=== PATIENT | male | born 1965 | race Caucasian/White ===

== ENCOUNTER 2016-07-17 11:46 | Emergency (ER) | payer BC ==
[2016-07-17] MEDS ORDERED: Alum Hydrox/Mag Hydrox/Simeth 30 ML, Lidocaine 2% 15 ML PO STA ×2 (12:43)
--- NOTE | 2016-07-17 13:36 | EDM.PDOC ---
ED HISTORY OF PRESENT ILLNESS - General Chief Complaint: Respiratory Problem Stated Complaint: CHEST PAIN/SOB Time Seen by Provider: 07/17/16 12:04 Source of Information: Reports: Patient, RN notes reviewed History Limitations: Reports: No limitations - History of Present Illness INITIAL COMMENTS - FREE TEXT/NARRATIVE: The patient states that he developed sudden onset chest pressure, the feeling that he couldn't take a deep breath, diaphoresis, and dizziness around 11:30 this morning, while unloading a trailer, although he states that this was not heavy exertion, at the time. The pain has decreased somewhat since its onset. He states that it comes and goes, usually lasting a few minutes, with momentary relief. He states that he has had similar pain in the past, and has been told that it is due to esophageal spasm, although this is a presumptive diagnosis - he has never had a formal evaluation. He states that he underwent a cardiac evaluation, including a stress test, her cardiogram, and Holter monitor in 2006. He states everything was negative. - Related Data Allergies/ADRs: Allergies Allergy/AdvReac Type Severity Reaction Status Date / Time hydrocortisone Allergy Itching Verified 07/17/16 12:02 Penicillins Allergy Rash Verified 07/17/16 12:02 hay fever Allergy Sneezing Uncoded 07/17/16 12:02 Home Meds: Home Meds Aspirin 81 mg PO DAILY 07/17/16 [History] Chlorpheniramine Maleate 4 mg PO ASDIRECTED PRN 07/17/16 [History] Diltiazem [Cardizem CD] 300 mg PO DAILY 07/17/16 [History] Fluticasone Propionate [Flonase] 1 dose NASBOTH DAILY PRN 07/17/16 [History] Ibuprofen 400 mg PO Q6H PRN 07/17/16 [History] Loratadine [Claritin] 10 mg PO DAILY 07/17/16 [History] Losartan [Cozaar] 100 mg PO DAILY 07/17/16 [History] Minocycline [Minocin] 100 mg PO DAILY 07/17/16 [History] buPROPion [Wellbutrin XL] 300 mg PO DAILY 07/17/16 [History] guaiFENesin [Mucinex] 600 mg PO ONETIME PRN 07/17/16 [History] Past Medical History HEENT History: Reports: Allergic rhinitis Cardiovascular History: Reports: Hypertension, Other (see below) (Bicuspid aortic valve) Psychiatric History: Reports: Anxiety, Depression Endocrine/Metabolic History: Reports: Obesity/BMI 30+, Other (see below) ( Prediabetes) - Past Surgical History GI Surgical History: Reports: Appendectomy, Hernia, inguinal (right) Social & Family History - Family History Family Medical History: Noncontributory - Tobacco Use Smoking Status *Q: Never Smoker - Caffeine Use Caffeine Use: Reports: Coffee Other Caffeine Use: 2 pots of coffee yesterday - Alcohol Use Alcohol Use History: Yes Alcohol Use Frequency: Rarely - Recreational Drug Use Recreational Drug Use: No - Living Situation & Occupation Living situation: Reports: , with spouse Occupation: employed [employer] GENERAL - Review of Systems Review Of Systems: See Below Constitutional: Reports: no symptoms HEENT: Reports: No symptoms Respiratory: Reports: No Symptoms Cardiovascular: Reports: No symptoms Endocrine: Reports: no symptoms GI/Abdominal: Reports: No symptoms : Reports: no symptoms Musculoskeletal: Reports: no symptoms Skin: Reports: no symptoms Neurological: Reports: No Symptoms Psychiatric: Reports: No symptoms Hematologic/Lymphatic: Reports: no symptoms Immunologic: Reports: no symptoms ED EXAM, GENERAL - Physical Exam Exam: See Below Exam Limited By: No limitations General Appearance: alert, WD/WN, mild distress Eye Exam: bilateral eye: EOMI, normal inspection Ears: normal external exam, hearing grossly normal Ear Exam: bilateral ear: auricle normal Nose: normal inspection, no blood Throat/Mouth: Normal inspection, Normal lips, Normal voice, No airway compromise Head: atraumatic, normocephalic Neck: normal inspection, full range of motion Respiratory/Chest: no respiratory distress, lungs clear, normal breath sounds, no accessory muscle use, chest non-tender Cardiovascular: normal peripheral pulses, regular rate, rhythm, no gallop, no JVD, no murmur, no rub Peripheral Pulses: 4+: radial (L), radial (R) GI/Abdominal: normal bowel sounds, soft, no organomegaly, no distention, no abnormal bruit, no mass, tender (To the epigastrium only. Nontender elsewhere.) , other (Obese) (Male) Exam: Deferred Rectal (Males) Exam: Deferred Back Exam: normal inspection, full range of motion, NT Extremities: normal inspection, normal range of motion, no pedal edema, normal capillary refill Neurological: alert, oriented, normal cognition, no motor/sensory deficits Psychiatric: normal affect Skin Exam: Warm, Dry, Intact, Normal color, No rash Lymphatic: no adenopathy EKG INTERPRETATION EKG Date: 07/17/16 Time: 11:59 Rhythm: NSR Rate (beats/min): 66 [place]: normal P-wave: present QRS: normal ST-T: normal QT: normal Comparison: NA - no prior EKG Course - Vital Signs Last Recorded V/S: Last Vital Signs Temp 35.5 C 07/17/16 11:50 Pulse 83 07/17/16 15:17 Resp 16 07/17/16 15: BP 143/72 H 07/17/16 15:17 Pulse Ox 95 07/17/16 15:17 - Orders/Labs/Meds Labs: Laboratory Tests 07/17/16 07/17/16 07/17/16 Range/Units 12:36 12:45 12:45 WBC (4.23-9.07) K/mm3 RBC (4.63-6.08) M/mm3 Hgb (13.7-17.5) gm/L Hct (40.1-51.0) % MCV (79.0-92.2) fl MCH (25.7-32.2) pg MCHC (32.2-35.5) g/dl RDW Std Deviation (35.1-43.9) fL Plt Count (163-337) K/mm3 MPV (9.4-12.3) fl Neutrophils % (Manual) (40-60) % Band Neutrophils % (0-10) % Lymphocytes % (Manual) (20-40) % Atypical Lymphs % % Monocytes % (Manual) (2-10) % Eosinophils % (Manual) (0.8-7.0) % Basophils % (Manual) (0.2-1.2) Platelet Estimate Plt Morphology Comment RBC Morph Comment PT 10.3 (8.0-13.0) SECONDS INR 0.95 APTT 21 L (22-36) SECONDS D-Dimer, Quantitative 0.61 H (0.19-0.59) mg/L Sodium 138 (136-145) mEq/L Potassium 3.9 (3.5-5.1) mEq/L Chloride 103 (98-107) mEq/L Carbon Dioxide 23 (21-32) mEq/L Anion Gap 15.9 H (5-15) BUN 21 H (7-18) mg/dL Creatinine 1.4 H (0.7-1.3) mg/dL Est Cr Clr Drug Dosing 70.95 mL/min Estimated GFR (MDRD) 53 (>60) mL/min BUN/Creatinine Ratio 15.0 (14-18) Glucose 168 H (74-106) mg/dL POC Glucose 160 H (70-105) mg/dL Calcium 9.1 (8.5-10.1) mg/dL Total Bilirubin 0.4 (0.2-1.0) mg/dL AST 18 (15-37) U/L ALT 34 (16-63) U/L Alkaline Phosphatase 87 (46-116) U/L Troponin I 0.041 (0.00-0.056) ng/mL B-Natriuretic Peptide (0-100) pg/mL Total Protein 7.2 (6.4-8.2) g/dl Albumin 3.6 (3.4-5.0) g/dl Globulin 3.6 gm/dL Albumin/Globulin Ratio 1.0 (1-2) 07/17/16 07/17/16 Range/Units 13:29 13:29 WBC 10.95 H (4.23-9.07) K/mm3 RBC 5.27 (4.63-6.08) M/mm3 Hgb 15.1 (13.7-17.5) gm/L Hct 45.7 (40.1-51.0) % MCV 86.7 (79.0-92.2) fl MCH 28.7 (25.7-32.2) pg MCHC 33.0 (32.2-35.5) g/dl RDW Std Deviation 45.1 H (35.1-43.9) fL Plt Count 193 (163-337) K/mm3 MPV 9.2 L (9.4-12.3) fl Neutrophils % (Manual) 81 H (40-60) % Band Neutrophils % 0 (0-10) % Lymphocytes % (Manual) 12 L (20-40) % Atypical Lymphs % 3 % Monocytes % (Manual) 4 (2-10) % Eosinophils % (Manual) 0 L (0.8-7.0) % Basophils % (Manual) 0 L (0.2-1.2) Platelet Estimate Adequate Plt Morphology Comment Normal RBC Morph Comment Normal PT (8.0-13.0) SECONDS INR APTT (22-36) SECONDS D-Dimer, Quantitative (0.19-0.59) mg/L Sodium (136-145) mEq/L Potassium (3.5-5.1) mEq/L Chloride (98-107) mEq/L Carbon Dioxide (21-32) mEq/L Anion Gap (5-15) BUN (7-18) mg/dL Creatinine (0.7-1.3) mg/dL Est Cr Clr Drug Dosing mL/min Estimated GFR (MDRD) (>60) mL/min BUN/Creatinine Ratio (14-18) Glucose (74-106) mg/dL POC Glucose (70-105) mg/dL Calcium (8.5-10.1) mg/dL Total Bilirubin (0.2-1.0) mg/dL AST (15-37) U/L ALT (16-63) U/L Alkaline Phosphatase (46-116) U/L Troponin I (0.00-0.056) ng/mL B-Natriuretic Peptide < 15 (0-100) pg/mL Total Protein (6.4-8.2) g/dl Albumin (3.4-5.0) g/dl Globulin gm/dL Albumin/Globulin Ratio (1-2) Meds: Medications Discontinued Medications Generic Name Dose Route Start Last Admin Trade Name Freq PRN Reason Stop Dose Admin Al Hydroxide/Mg Hydroxide 30 0 ml 07/17/16 12:43 07/17/16 12:59 ml/ Lidocaine HCl 15 ml PO 07/17/16 12:44 45 ml ONETIME STA Administration Famotidine 40 mg 07/17/16 14:43 07/17/16 15:14 Pepcid PO 07/17/16 14:44 40 mg ONETIME STA Administration - Radiology Interpretation Free Text/Narrative:: Two-view chest radiograph appears to be grossly normal. Cardiac silhouette is within normal limits. No pulmonary vascular congestion. No pleural effusions. No focal infiltrate. No pneumothorax. Formal read per the Radiologist pending. - Re-Assessments/Exams Free Text/Narrative Re-Assessment/Exam: 07/17/16 13:37 The patient states that a GI cocktail helped a little bit. 07/17/16 14:43 Test results discussed with the patient. Today's workup is unremarkable and does not explain the cause of the patient's pain. Clinically, I suspect that the patient is suffering from GERD. I am not so certain that the patient actually has esophageal spasm, as this is a relatively rare condition, and is usually extremely painful, bringing patient's to their knees, and often precipitated by the patient drinking a cold liquid, which did not occur in this case. Even if the patient does have esophageal spasm, however, it is usually associated with GERD, so either way, the patient should be treated for GERD. I am going to start him on Pepcid here, and recommend he continue that going forward. Departure - Departure Time of Disposition: 14:45 Disposition: Home, Self-Care 01 Condition: good Clinical Impression: GERD (gastroesophageal reflux disease) Instructions: Food Choices for Gastroesophageal Reflux Disease, Adult, Gastroesophageal Reflux Disease, Adult Referrals: PCP,Not In Area [Primary Care Provider] - Shi Johns PA-C [Physician Package Reinspector] - Forms: ED Department Discharge Additional Instructions: You were seen in the emergency room for chest pressure, sweatiness, dizziness, and difficulty taking a deep breath. Workup in the ER included blood work, an ECG, and a chest x-ray. Your workup was remarkable for an elevated blood sugar of 168. As discussed, this may mean that you have diabetes. Further evaluation is required. Please followup with Shi Johns at the next available appointment. The remainder of your workup was unremarkable. There is no evidence that your chest pain was cardiac in nature. Your chest pain was MOST LIKELY due to acid reflux, also known as GERD. You have been started on antacid medicine Pepcid (famotidine). This medicine is available [id number], and generics are just as good as the brand name. We are recommending that you take this medicine once or twice a day. If your symptoms persist despite this medicine, you need an EGD (scope of the stomach). In that case, please followup with the Surgeon Dr. Urbina. If any other problems, please do not hesitate to return to the ER.
[2016-07-17] MEDS ORDERED: Famotidine 20 MG Tab PO STA (14:43)
[2016-07-17 16:07] VITALS: BP 143/72
--- NOTE | 2016-07-18 17:45 | CR ---
Chest: Two views of the chest were obtained. Comparison: No previous study. Heart size and mediastinum are within normal limits. Lungs are clear. Bony structures are unremarkable for the patient's age. Impression: 1. Nothing acute is identified on two-view chest x-ray. Diagnostic code #1
== END 2016-07-17 15:18 | disposition home or self-care (01) ==
LOC: JD.ED 11:46
DX: K21.9 Gastro-esophageal reflux disease without esophagitis (principal); J30.9 Allergic rhinitis, unspecified; I10 Essential (primary) hypertension; F32.9 Major depressive disorder, single episode, unspecified; F41.9 Anxiety disorder, unspecified; E66.9 Obesity, unspecified; Z68.30 Body mass index [BMI] 30.0-30.9, adult; Z79.82 Long term (current) use of aspirin; Z79.899 Other long term (current) drug therapy; Z88.0 Allergy status to penicillin; Z88.8 Allergy status to other drugs, medicaments and biological substances
CPT/HCPCS: 36415; 71020; 80053; 82962; 83880; 84484; 85025; 85379; 85610; 85730; 93005; 99285; A9270; 99283